=== PATIENT | male | born 1975 | race Caucasian/White ===

== ENCOUNTER 2017-10-03 13:53 | Emergency (ER) | payer MEDICAID ==
[~2017-10-03] VITALS: Ht 180.3 cm; Wt 145.4 kg
[~2017-10-03 13:53] MED LIST: ALBU8.5H5 INH; GABA-827 PO; HYDR12.53 PO; IBUP100T PO; TRAM50TA2 PO
[2017-10-03 14:25] VITALS: BP 151/96
[2017-10-03] MEDS ORDERED: HYDROcodone/APAP 5/325 TABLET PO ONE (15:00)
[2017-10-03] MEDS ORDERED: KETOROLAC 30 MG/1 ML IM ONE (15:00)
[2017-10-03] MEDS ORDERED: KETOROLAC 30 MG/1 ML ONE (15:02)
[2017-10-03] MEDS ORDERED: HYDROcodone/APAP 5/325 TABLET ONE (15:02)
== END 2017-10-03 15:53 | disposition home or self-care (01) ==
LOC: ED 15:45
DX: G60.9 Hereditary and idiopathic neuropathy, unspecified (principal); I10 Essential (primary) hypertension; G89.29 Other chronic pain; Z90.49 Acquired absence of other specified parts of digestive tract
CPT/HCPCS: 82962; 93971; 96372; 99284; J1885

== ENCOUNTER 2020-07-08 23:20 | Emergency (ER) | payer MEDICAID ==
[~2020-07-08] VITALS: Ht 177.8 cm; Wt 161.0 kg
[~2020-07-08 23:20] MED LIST changes: +HYDR12.517 PO; -HYDR12.53 PO
[2020-07-08 23:21] VITALS: BP 129/96
--- NOTE | 2020-07-08 23:36 | NUR ---
Alert, answering questions appropriately. C/o abscess to L upper molar x 3-4 days with associated DONALD. States hx of dental abscesses leading to ICU admits d/t sepsis. Pt states gradually progressing pain/swelling. Able to tolerate secretions without difficulty. Speaking in clear, full sentences. No s/sx acute respiratory distress noted. Denies fever/chills. Denies weakness. Ambulating independently, steady gait
[2020-07-08] MEDS ORDERED: AMOXICILLIN 500 MG CAPSULE ONE (23:54)
[2020-07-08] MEDS ORDERED: OXYcodone/APAP 5/325MG TABLET ONE (23:54)
[2020-07-09] MEDS ORDERED: OXYcodone/APAP 5/325MG TABLET PO ONE
[2020-07-09] MEDS ORDERED: AMOXICILLIN 500 MG CAPSULE PO ONE
== END 2020-07-09 00:09 | disposition home or self-care (01) ==
LOC: ED 23:47
DX: K02.9 Dental caries, unspecified (principal); K04.7 Periapical abscess without sinus; Z76.0 Encounter for issue of repeat prescription; R00.0 Tachycardia, unspecified; I10 Essential (primary) hypertension; J45.909 Unspecified asthma, uncomplicated
CPT/HCPCS: 99283

== ENCOUNTER 2021-05-21 23:35 | Emergency (ER) | payer MEDICAID ==
[~2021-05-21] VITALS: Ht 180.3 cm; Wt 161.0 kg
[~2021-05-21 23:35] MED LIST changes: -IBUP100T PO; +IBUP100T69 PO
[2021-05-21 23:39] VITALS: BP 175/118
--- NOTE | 2021-05-22 00:13 | NUR ---
pt states he has a history of uncontrolled htn, hasnt taken his meds in over 2 years. pt states 3 days ago he started to notice some blurred vision in his right eye and then was having some stiffness on his right side of the face. all other neuro symptoms negative. pt dening pain or any other discomfort. pt placed on all monitors, piv placed, labs drawn, awaiting erp eval
== END 2021-05-22 01:17 | disposition home or self-care (01) ==
LOC: ED 23:58
DX: G51.0 Bell's palsy (principal); I10 Essential (primary) hypertension; Z76.0 Encounter for issue of repeat prescription; G89.29 Other chronic pain; R94.31 Abnormal electrocardiogram [ECG] [EKG]; J45.909 Unspecified asthma, uncomplicated; F17.200 Nicotine dependence, unspecified, uncomplicated; Z90.89 Acquired absence of other organs
CPT/HCPCS: 93005; 99283

== ENCOUNTER 2021-06-03 23:17 | Emergency (ER) | payer MEDICAID ==
[~2021-06-03] VITALS: Ht 179.1 cm; Wt 167.6 kg
[2021-06-03] MEDS ORDERED: CARBAMIDE PEROXIDE EAR DROPS 6.5%, 15ML ONE (23:48)
--- NOTE | 2021-06-03 23:49 | NUR ---
PROVIDER AT BEDSIDE FOR EVAL
[2021-06-03] MEDS ORDERED: KETOROLAC 30 MG/1 ML ONE (23:51)
--- NOTE | 2021-06-03 23:52 | NUR ---
drops applied to ear, pt resting on jose[place] no needs at this time.
[2021-06-04] MEDS ORDERED: CARBAMIDE PEROXIDE EAR DROPS 6.5%, 15ML RIGHT EAR ONE
[2021-06-04] MEDS ORDERED: KETOROLAC 30 MG/1 ML IM ONE (00:30)
--- NOTE | 2021-06-04 00:45 | NUR ---
ear irrigated, pt tolerated dav updated on progress
[2021-06-04 01:47] VITALS: BP 149/88
== END 2021-06-04 02:03 | disposition home or self-care (01) ==
LOC: ED 23:47
DX: H72.91 Unspecified perforation of tympanic membrane, right ear (principal); H61.21 Impacted cerumen, right ear; I10 Essential (primary) hypertension; F17.200 Nicotine dependence, unspecified, uncomplicated
CPT/HCPCS: 69209; 96372; 99283; J1885; 69210